=== PATIENT | female | born 1950 | race Caucasian/White ===

== ENCOUNTER 2017-11-30 12:34 | Outpatient (CLI) | payer MEDICARE ==
--- NOTE | 2017-11-30 14:50 | MRI ---
MRI OF THE LUMBAR SPINE WITHOUT CONTRAST: INDICATION: Chronic back pain with referral pain into both hips. COMPARISON: None. TECHNIQUE: Multiplanar, multisequence MR images were obtained of the lumbar spine without IV contrast. Five lum bar-type vertebral bodies are assumed for the purposes of this exam. FINDINGS: Conus is seen to terminate at L1-2. The visualized retroperitoneum and perivertebral soft tissues appear within normal limits. At the L5-S1 level, there is mild to moderate facet osteoarthrosis and a mild broad-based bulge witho ut appreciable central canal or neural foraminal narrowing. At L4-5, there is a broad-based disk bulge with mild facet joint degenerative change. There is no ap preciable central canal or neural foraminal narrowing. At L3-4, there is mild to moderate facet joint degenerative change. There is a mild broad-based bulg e without appreciable central canal or neural foraminal narrowing. At L2-3, there is no appreciable central canal or neural foraminal narrowing. There is mild facet zulema int degenerative change. At L1-L2, there is mild facet joint degenerative change without appreciable central canal or neural f oraminal narrowing. At T12-L1, there is no appreciable central canal or neural foraminal narrowing. At T11-T12, there is no appreciable central canal or neural foraminal narrowing. IMPRESSION: Mild multilevel spondylosis of the lumbar spine without appreciable central canal or neural foraminal narrowing. POS: [facility]
== END 2017-11-30 12:35 | disposition home or self-care (01) ==
LOC: SCSMRI 12:34
PROVIDERS: ATTEND Nurse Practitioner Family
DX: M47.816 Spondylosis without myelopathy or radiculopathy, lumbar region (principal); M48.061 Spinal stenosis, lumbar region without neurogenic claudication
CPT/HCPCS: 72148

== ENCOUNTER 2019-09-12 11:15 | Outpatient (CLI) | payer MEDICARE ==
--- NOTE | 2019-09-12 13:52 | MRI ---
NONCONTRAST MRI LUMBAR SPINE: Date: 09/12/19 HISTORY: Severe lower back pain with pain radiating down bilateral legs. Lumbar radiculopathy. COMPARISON: 11/30/17. FINDINGS: There is a subcentimeter increased T2 weighted signal intensity structure seen at the superior pole o f right kidney, stable when compared to the prior exam, which statistically likely represents a small cyst. There is mild atherosclerotic plaque seen in the abdominal aorta. Retroperitoneal structures o therwise have a normal nonenhanced MRI appearance. There are rounded areas of increased T1 and T2-weighted signal intensity again seen of the T12 and L1 vertebral bodies, most compatible with hemangiomas. End plate degenerative changes are seen at the L 4-5 level, and to a lesser extent involving the anterior aspect of the T11-12 level. The conus medullaris is normal in appearance and again terminates at the L1-2 level. L1-2 Level: Mild facet degenerative changes are again seen. No significant disc bulge or herniation identified. Central spinal canal and neural foramina are patent. L2-3 Level: Mild facet degenerative changes are again present. There is no significant disc bulge or disc herniation. The central spinal canal and neural foramina are patent. L3-4 Level: Moderate facet hypertrophic changes and mild ligamentous thickening is present. A mild d isc osteophyte complex is noted. There is no significant central canal narrowing. The neural foramina are patent at this level. L4-5 Level: Again, there is loss of intervertebral disc height with facet hypertrophic changes. Ther e is a mild disc osteophyte complex again present, overall similar to the prior exam. There is no sig nificant central canal narrowing present. There is minimal bilateral neural foraminal narrowing, grea ter on the right. This is unchanged from prior study. L5-S1 Level: There is mild loss of intervertebral disc height. There is no significant disc bulge or disc herniation. Facet hypertrophic changes are again seen. The central spinal canal and neural fora rodolfo remain patent. IMPRESSION: Mild multilevel degenerative changes, stable when compared to the prior exam. There is no high grade central canal or neural foraminal narrowing seen. POS: [facility]
== END 2019-09-12 11:16 | disposition home or self-care (01) ==
LOC: SCSMRI 11:15
PROVIDERS: ATTEND Anesthesiology Pain Medicine
DX: M47.26 Other spondylosis with radiculopathy, lumbar region (principal)
CPT/HCPCS: 72148

== ENCOUNTER 2019-11-14 07:34 | Outpatient (CLI) | payer MEDICARE ==
--- NOTE | 2019-11-14 10:18 | CT ---
CT chest without and with IV contrast HISTORY: Lung nodule. Follow-up. COMPARISON: Prior studies from [facility] 05/12/2019 and 11/13/2018. FINDINGS: Lungs remain hyperinflated with scattered areas of parenchymal scarring, most notably in th e left upper lobe with some dystrophic calcification. This underlies old left rib fractures and is likely related to prior trauma. The 3 tiny subpleural nodules within the left lower lobe are again demonstrated. Each is 0.3 cm great est diameter on today's study. Less conspicuous than on prior CT exam. No new parenchymal nodule evident. No pleural fluid or pneumothorax. No enlarged lymph nodes evident within the mediastinum. Mild arteri al calcification. Area of parenchymal scarring deep within the left breast is stable and consistent with prior surgery and treatment. Dystrophic calcification within the pancreas. Small hiatal hernia. Dystrophic calcification along the lateral margin of the spleen may be related t o prior trauma or infection. IMPRESSION: Stable CT appearance of the tiny left lower lobe nodules. Somewhat less conspicuous than on the prior study. No further imaging follow-up required. Atherosclerosis. Chronic pancreatitis. Small hiatal hernia.
== END 2019-11-14 07:35 | disposition home or self-care (01) ==
LOC: SCSCT 07:34
PROVIDERS: ATTEND Radiology Radiation Oncology
DX: R91.8 Other nonspecific abnormal finding of lung field (principal); I70.90 Unspecified atherosclerosis; K86.1 Other chronic pancreatitis; K44.9 Diaphragmatic hernia without obstruction or gangrene; Z85.3 Personal history of malignant neoplasm of breast
CPT/HCPCS: 71270; 82565

== ENCOUNTER 2021-03-01 10:18 | Outpatient (CLI) | payer MEDICARE, OTHER ==
[2021-03-01 21:48] LABS: SARS-CoV-2 PCR by NAA Not Detected (NotDetected)
== END 2021-03-01 10:19 | disposition home or self-care (01) ==
LOC: LABBT 10:18
PROVIDERS: ATTEND Anesthesiology Pain Medicine
DX: Z01.812 Encounter for preprocedural laboratory examination (principal); M48.062 Spinal stenosis, lumbar region with neurogenic claudication; Z20.822 Contact with and (suspected) exposure to COVID-19
CPT/HCPCS: U0003; U0005; 87635

== ENCOUNTER 2021-12-09 13:22 | Outpatient (CLI) | payer MEDICARE, OTHER | END 2021-12-09 13:23 | disposition home or self-care (01) | LOC: BICMAMMO 13:22 | PROVIDERS: ATTEND Internal Medicine Hematology & Oncology | DX: N63.20 Unspecified lump in the left breast, unspecified quadrant (principal); C34.81 Malignant neoplasm of overlapping sites of right bronchus and lung; Z85.3 Personal history of malignant neoplasm of breast | CPT/HCPCS: 77066; G0279 ==

== ENCOUNTER 2023-08-24 11:34 | Outpatient (CLI) | payer MEDICARE, OTHER | END 2023-08-24 11:35 | disposition home or self-care (01) | LOC: SCSRAD 11:34 | PROVIDERS: ATTEND Family Medicine | DX: S69.91XA Unspecified injury of right wrist, hand and finger(s), initial encounter (principal) ==

== ENCOUNTER 2024-01-23 08:04 | Outpatient (CLI) | payer MEDICARE, OTHER | END 2024-01-23 08:05 | disposition home or self-care (01) | LOC: ULT 08:04 | PROVIDERS: ATTEND Family Medicine | DX: R31.9 Hematuria, unspecified (principal); N28.1 Cyst of kidney, acquired; N32.9 Bladder disorder, unspecified | CPT/HCPCS: 76770 ==

== ENCOUNTER 2024-03-19 09:55 | Outpatient (CLI) | payer MEDICARE, OTHER ==
[2024-03-19 11:04] LABS: Hemoglobin 14.5 g/dL (12.0-15.5); Mean Corpuscular Hemoglobin 30.2 pg (27.0-33.0); Mean Corpuscular Volume 91.7 fl (81.6-98.3); Mean Platelet Volume 9.1 fl (7.4-10.4); Platelet Count 303 10x3/uL (150-450); RBC Distribution Width 14.5 % (11.5-14.5); White Blood Cell (WBC) Count 8.7 10x3/uL (3.5-10.5)
[2024-03-19 11:17] LABS: Bilirubin Neg (Negative); Blood, Urine 10 (Negative); Clarity Clear (Clear); Glucose, Urine (Dipstick) Normal (Negative); Ketone, Urine Negative (Negative); Leukocyte 25 (Negative); Nitrite Negative (Negative); Protein, Urine (Dipstick) 15 mg/dl (Neg-Trace); Specific Gravity, Urine 1.025 (1.005-1.030); Urobilinogen Normal mg/dL (Less than 2)
[2024-03-19 11:26] LABS: INR-International Normal Ratio 0.9; PTT 27.3 sec (22.0-33.0); Prothrombin Time 10.3 sec (9.5-12.1)
[2024-03-19 11:28] LABS: Anion Gap 11 mmol/L (10-20); BUN (Urea Nitrogen) 12 mg/dL (9.8-20.1); Calc. Creatinine Clearance 0 mL/min (70-130); Calcium 9.2 mg/dL (7.8-10.44); Carbon Dioxide 29 mmol/L (23-31); Chloride 102 mmol/L (98-107); Estimated GFR 92; Glucose 82 mg/dL (83-110); Potassium 3.3 mmol/L (3.5-5.1); Sodium 139 mmol/L (136-145)
[2024-03-19 11:38] LABS: Bacteria/HPF None Seen HPF (None Seen); Calcium Oxalate Crystals 2+ HPF (None Seen); Mucous/LPF 1+ LPF (<2+); RBC/HPF 0-3 HPF (0-3); Squamous Epithelial 0-3 HPF (0-3); WBC/HPF 0-3 HPF (0-3)
== END 2024-03-19 09:56 | disposition home or self-care (01) ==
LOC: LABBT 09:55
PROVIDERS: ATTEND Urology
DX: Z01.812 Encounter for preprocedural laboratory examination (principal); N32.89 Other specified disorders of bladder
CPT/HCPCS: 80048; 81001; 85027; 85610; 85730; 87086; 93005; 93010

== ENCOUNTER 2024-04-02 06:43 | Day surgery (SDC) | payer MEDICARE, OTHER ==
[2024-03-19 10:49] VITALS: BMI 25.7
[2024-04-02] MEDS ORDERED: mitoMYcin 40 MG in Sodium Chloride 0.9% 40 ML I-VESIC SCH (08:15)
[2024-04-02] MEDS ORDERED: LevoFLOXacin 500 mg/D5W 500 MG in Premix 1 BAG IVPB SCH (08:15)
[2024-04-02] MEDS ORDERED: LevoFLOXacin D5W 500 mg (100 mL) BAG ONE (08:20)
[2024-04-02] MEDS ORDERED: Iopamidol 15 ML ONE (08:41)
[2024-04-02] MEDS ORDERED: Lidocaine 1% PF 5 ML VIAL ONE (09:05)
[2024-04-02] MEDS ORDERED: Rocuronium Bromide 10 MG/ML (10ML VIAL) ONE (09:05)
[2024-04-02] MEDS ORDERED: PROPOFOL 200 MG/20 ML VIAL ONE (09:05)
[2024-04-02] MEDS ORDERED: Phenazopyridine HCl 100 MG TAB ONE (10:24)
[2024-04-02] MEDS ORDERED: Hyoscyamine SL 0.125 MG TAB ONE (10:24)
== END 2024-04-02 12:50 | disposition home or self-care (01) ==
LOC: SDC 06:43
PROVIDERS: ATTEND Urology
PROC: 0TBB8ZZ Excision of Bladder, Via Natural or Artificial Opening Endoscopic (ICD-10-PCS; principal; 2024-04-02)
PROC: 3C1ZX8Z Irrigation of Indwelling Device using Irrigating Substance, External Approach (ICD-10-PCS; 2024-04-02)
DX: C67.2 Malignant neoplasm of lateral wall of bladder (principal); N32.89 Other specified disorders of bladder; Z79.899 Other long term (current) drug therapy; Z91.048 Other nonmedicinal substance allergy status; Z88.8 Allergy status to other drugs, medicaments and biological substances; Z88.0 Allergy status to penicillin; Z88.1 Allergy status to other antibiotic agents; Z88.6 Allergy status to analgesic agent
CPT/HCPCS: 51720; 52235; 86850; 86900; 86901; A4333; J1956; J2704; J9280; Q9967; 36415; 88305

== ENCOUNTER 2024-08-11 00:54 | Observation (INO) | payer MEDICARE, OTHER ==
[2024-08-11] MEDS ORDERED: Ondansetron PF 4 MG/2 ML Vial IVP PRN (02:36)
[2024-08-11] MEDS ORDERED: Calcium Carbonate 500 MG ChewTAB PO PRN (02:36)
[2024-08-11] MEDS ORDERED: Ondansetron ODT 4 MG TAB PO PRN (02:36)
[2024-08-11] MEDS ORDERED: Acetaminophen 650 MG Suppository PR PRN (02:36)
[2024-08-11 02:37] VITALS: BMI 28.5
[2024-08-11 03:30] LABS: Troponin I Less than 0.010 ng/mL (< 0.028)
[2024-08-11] MEDS ORDERED: Benzonatate 100 MG CAP PO PRN (05:23)
[2024-08-11] MEDS: Acetaminophen 325 MG TAB PO SCH (05:28)
[2024-08-11 06:32] LABS: #Basophils 0.05 10x3/uL (0.0-0.2); %Basophils 0.4 % (0.0-1.0); %Eosinophils 1.4 % (0.0-10.0); %Lymphocytes 13.2 % (21.0-51.0); %Monocytes 8.4 % (0.0-10.0); %Neutrophils 75.4 % (42.0-75.0); Hematocrit 37.9 % (36.0-47.0); Hemoglobin 12.3 g/dL (12.0-16.0); Mean Corpuscular HGB CONC 32.5 g/dL (32.0-36.0); Mean Corpuscular Hemoglobin 30.2 pg (27.0-31.0); Mean Corpuscular Volume 93.1 fL (78.0-98.0); Mean Platelet Volume 9.1 fL (7.4-10.4); Platelet Count 366 10x3/uL (130-400); RBC Distribution Width 14.2 % (11.5-14.5); Red Blood Cell (RBC) Count 4.07 mill/uL (4.20-5.40)
[2024-08-11 06:48] LABS: ALT (SGPT) 16 U/L (8-55); AST (SGOT) 17 U/L (5-34); Albumin 2.8 g/dL (3.4-4.8); Alkaline Phosphatase 63 U/L (40-110); Anion Gap 10 mmol/L (10-20); BUN (Urea Nitrogen) 20 mg/dL (9.8-20.1); Bilirubin, Total 0.2 mg/dL (0.2-1.2); Calc. Creatinine Clearance 92 mL/min (70-130); Calcium 8.9 mg/dL (7.8-10.44); Carbon Dioxide 27 mmol/L (23-31); Chloride 109 mmol/L (98-107); Estimated GFR 93; Globulin 2.5 g/dL (2.4-3.5); Glucose 84 mg/dL (83-110); Potassium 3.5 mmol/L (3.5-5.1); Protein, Total 5.3 g/dL (5.8-8.1); Sodium 142 mmol/L (136-145)
[2024-08-11 06:50] LABS: Troponin I Less than 0.010 ng/mL (< 0.028)
[2024-08-11] MEDS: Mometasone 100 MCG HFA INHALER (RT USE) INH SCH (07:11)
[2024-08-11] MEDS: Ipratropium/Albuterol 3 ML NEB NEB SCH (07:13)
[2024-08-11] MEDS: Ascorbic Acid 500 mg Chewable Tablet PO SCH (08:11)
[2024-08-11] MEDS: Oxybutynin ER 5 MG TAB PO SCH (08:11)
[2024-08-11] MEDS: Aspirin Chewable 81 MG TAB PO SCH (08:11)
[2024-08-11] MEDS: Famotidine 20 MG TAB PO SCH (08:11)
[2024-08-11] MEDS: Cholecalciferol 1,000 UNITS (25 MCG) TAB PO SCH (08:11)
[2024-08-11] MEDS: Losartan 25 MG TAB PO SCH (08:12)
[2024-08-11] MEDS: FLUoxetine HCl 20 MG CAP PO SCH (08:12)
[2024-08-11] MEDS: Famotidine/PF 20 mg/2ml Vial SLOW IVP SCH (08:13)
[2024-08-11 08:43] VITALS: BP 134/65; TEMP 97.8
[2024-08-11] MEDS ORDERED: traZODone HCl 50 MG TAB PO SCH (21:00)
[2024-08-11] MEDS ORDERED: Rosuvastatin 20 MG TAB PO SCH (21:00)
[2024-08-11] MEDS ORDERED: Transdermal Patch Removal TOP SCH (23:00)
[2024-08-12] MEDS ORDERED: Lidocaine 4% Patch TD SCH (11:00)
== END 2024-08-11 17:30 | disposition home or self-care (01) ==
LOC: 2SW 02:11 → OBS 10:48
PROVIDERS: ADMIT Student in an Organized Health Care Education/Training Program; ATTEND Student in an Organized Health Care Education/Training Program
DX: R07.9 Chest pain, unspecified (principal); I10 Essential (primary) hypertension; E78.5 Hyperlipidemia, unspecified; J44.9 Chronic obstructive pulmonary disease, unspecified; F41.9 Anxiety disorder, unspecified; Z85.118 Personal history of other malignant neoplasm of bronchus and lung; Z91.018 Allergy to other foods; Z88.0 Allergy status to penicillin; Z88.1 Allergy status to other antibiotic agents; Z88.8 Allergy status to other drugs, medicaments and biological substances; Z91.09 Other allergy status, other than to drugs and biological substances; Z85.3 Personal history of malignant neoplasm of breast; Z87.891 Personal history of nicotine dependence; Z90.710 Acquired absence of both cervix and uterus; Z98.890 Other specified postprocedural states; Z79.82 Long term (current) use of aspirin; Z79.899 Other long term (current) drug therapy
CPT/HCPCS: 80053; 84484 ×2; 85025; 94640 ×3; G0378; 36415; J7620